=== PATIENT | male | born 1950 | race Caucasian/White ===

== ENCOUNTER 2018-04-26 16:23 | Inpatient (IN) | payer MEDICARE, BC ==
[~2018-04-26] VITALS: Ht 182.9 cm; Wt 91.6 kg
[2018-04-26 17:00] VITALS: BP 130/79
[2018-04-26] MEDS ORDERED: LORAZEPAM 2MG/ML CPJ IV PRN (19:30)
[2018-04-26 20:00] VITALS: BP 112/67
[2018-04-26] MEDS ORDERED: NON FORMULARY PATIENT HOME MED EA XX SCH ×2 (20:00)
[2018-04-26] MEDS ORDERED: GUAIFENESIN/CODEINE 100-10MG/5ML UDC PO PRN (20:30)
[2018-04-26 20:55] LABS: BASOPHILS % 0.6 % (0.0-2.0); CHLORIDE 99 mEq/L (98-107); EOSINOPHILS % 1.7 % (0.0-5.0); HEMATOCRIT. 30.6 % (42.0-52.0); HEMOGLOBIN. 10.2 g/dL (14.0-18.0); INR 1.3; LYMPHOCYTES % 8.1 % (20.0-50.0); MEAN CORPUSCULAR HEMOGLOBIN 28.2 pg (28.0-32.0); MEAN CORPUSCULAR VOLUME 84.8 fL (80.0-94.0); MEAN PLATELET VOLUME 6.3 fl (7.4-10.4); MONOCYTES % 12.7 % (2.0-8.0); NEUTROPHILS % 76.9 % (40.0-76.0); PLATELET 697 x1000/uL (130-400); PROTHROMBIN TIME 13.4 sec (9.4-11.6); RED BLOOD CELL COUNT 3.61 mill/uL (4.7-6.1); RED CELL DISTRIBUTION WIDTH 16.6 % (11.6-14.6)
[2018-04-26] MEDS ORDERED: PROMETHAZINE HCL 25MG TABLET PO PRN (21:00)
[2018-04-26] MEDS: ATORVASTATIN CALCIUM 40MG TABLET PO SCH (21:09)
[2018-04-26] MEDS: GABAPENTIN 300MG CAPSULE PO SCH (21:09)
[2018-04-26] MEDS: METRONIDAZOLE 500 MG PREMIX 100 ML IV SCH (22:09)
[2018-04-26] MEDS: ZOLPIDEM TARTRATE 5MG TABLET PO PRN (22:30)
[2018-04-26] MEDS: CEFEPIME 1,000 MG in DEXTROSE 5% WATER 50 ML IV SCH (23:16)
[2018-04-27] MEDS ORDERED: VANCOMYCIN 1,250 MG in DEXT 5% WATER 250 ML IV SCH (05:00)
[2018-04-27] MEDS: METRONIDAZOLE 500 MG PREMIX 100 ML IV SCH ×3 (05:43→23:13)
[2018-04-27 08:00] VITALS: BP 127/74
[2018-04-27] MEDS ORDERED: PANTOPRAZOLE SODIUM 40 MG/VIAL IV SCH (09:00)
[2018-04-27] MEDS: METOPROLOL TARTRATE 50MG TABLET PO SCH (09:00)
[2018-04-27] MEDS ORDERED: BISACODYL 10MG SUPP PR PRN (09:15)
[2018-04-27] MEDS: ENOXAPARIN 40MG/0.4ML SYR SUBCUT SCH (09:38)
[2018-04-27] MEDS: CHLORDIAZEPOXIDE 25MG CAPSULE PO SCH (09:46)
[2018-04-27] MEDS: FINASTERIDE 5MG TABLET PO SCH (09:46)
[2018-04-27] MEDS: AMLODIPINE 5MG TABLET PO SCH (09:46)
[2018-04-27] MEDS: LOSARTAN POTASSIUM 50 MG TABLET PO SCH (09:47)
[2018-04-27] MEDS: TAMSULOSIN HCL 0.4MG SR CAPSULE PO SCH (09:48)
[2018-04-27] MEDS: CITALOPRAM HYDROBROMIDE 20MG TABLET PO SCH (09:51)
[2018-04-27] MEDS: FLUTICASONE PROPIONATE 50MCG/SPRAY BOTTLE BOTHNSTRLS SCH (09:53)
[2018-04-27] MEDS: [UNRECOGNIZED DRUG - REMARK] IV SCH ×3 (09:53)
[2018-04-27] MEDS ORDERED: MINERAL OIL ENEMA 133ML PR SCH (10:00)
[2018-04-27] MEDS: LACTULOSE 20G/30ML UDC PO SCH ×3 (10:25→17:00)
[2018-04-27] MEDS: PANTOPRAZOLE 40MG DR TABLET PO SCH (10:25)
[2018-04-27] MEDS: BISACODYL 5MG TABLET PO SCH ×2 (10:25→17:00)
[2018-04-27] MEDS: DOCUSATE SODIUM 100MG CAPSULE PO SCH ×2 (10:33→17:00)
[2018-04-27 11:26] LABS: INR 1.3; PROTHROMBIN TIME 13.3 sec (9.4-11.6)
[2018-04-27 11:31] LABS: HEMOGLOBIN 10.7 g/dL (14.0-18.0); MEAN CORPUSCULAR HEMOGLOBIN 28.2 pg (28.0-32.0); MEAN CORPUSCULAR VOLUME 84.3 fL (80.0-94.0); PLATELET 794 x1000/uL (130-400); RED CELL DISTRIBUTION WIDTH 16.4 % (11.6-14.6)
[2018-04-27 11:58] LABS: CHLORIDE 98 mEq/L (98-107)
[2018-04-27 12:07] LABS: PHOSPHORUS 2.2 mg/dL (2.5-4.9)
[2018-04-27 12:10] LABS: PREALBUMIN 10.8 mg/dL (20.0-40.0)
[2018-04-27 12:22] LABS: AMMONIA 43 uMol/L (<32)
[2018-04-27] MEDS: CEFEPIME 1,000 MG in DEXTROSE 5% WATER 50 ML IV SCH ×2 (14:46→19:05)
[2018-04-27 20:00] VITALS: BP 111/69
[2018-04-27] MEDS: VANCOMYCIN 1,250 MG in DEXT 5% WATER 250 ML IV SCH (20:50)
[2018-04-27] MEDS: ATORVASTATIN CALCIUM 40MG TABLET PO SCH (20:51)
[2018-04-27] MEDS: GABAPENTIN 300MG CAPSULE PO SCH (20:51)
[2018-04-27] MEDS: IPRATROPIUM/ALBUTEROL 0.5-3(2.5)MG/3ML NEB HHN SCH (21:00)
[2018-04-28] MEDS: CEFEPIME 1,000 MG in DEXTROSE 5% WATER 50 ML IV SCH ×3 (01:58→23:21)
[2018-04-28] MEDS: METRONIDAZOLE 500 MG PREMIX 100 ML IV SCH ×3 (05:44→21:38)
[2018-04-28] MEDS: PANTOPRAZOLE 40MG DR TABLET PO SCH (07:00)
[2018-04-28] MEDS: VANCOMYCIN 1,250 MG in DEXT 5% WATER 250 ML IV SCH ×2 (07:00→18:41)
[2018-04-28] MEDS: IPRATROPIUM/ALBUTEROL 0.5-3(2.5)MG/3ML NEB HHN SCH ×4 (07:20→21:45)
[2018-04-28 08:00] VITALS: BP 113/67
[2018-04-28] MEDS: BISACODYL 5MG TABLET PO SCH ×2 (09:00→17:00)
[2018-04-28] MEDS: METOPROLOL TARTRATE 50MG TABLET PO SCH (09:00)
[2018-04-28] MEDS: LOSARTAN POTASSIUM 50 MG TABLET PO SCH (09:00)
[2018-04-28] MEDS: DOCUSATE SODIUM 100MG CAPSULE PO SCH ×2 (09:00→17:00)
[2018-04-28] MEDS: AMLODIPINE 5MG TABLET PO SCH (09:00)
[2018-04-28] MEDS: FLUTICASONE PROPIONATE 50MCG/SPRAY BOTTLE BOTHNSTRLS SCH (09:45)
[2018-04-28] MEDS: HYDROCODONE/ACETAMINOPHEN 10/325MG TABLET PO PRN (09:46)
[2018-04-28] MEDS: ENOXAPARIN 40MG/0.4ML SYR SUBCUT SCH (09:49)
[2018-04-28] MEDS: TAMSULOSIN HCL 0.4MG SR CAPSULE PO SCH (09:50)
[2018-04-28] MEDS: FINASTERIDE 5MG TABLET PO SCH (09:51)
[2018-04-28] MEDS: CITALOPRAM HYDROBROMIDE 20MG TABLET PO SCH (09:51)
[2018-04-28] MEDS: CHLORDIAZEPOXIDE 25MG CAPSULE PO SCH (09:51)
[2018-04-28] MEDS: [UNRECOGNIZED DRUG - REMARK] IV SCH ×3 (11:33)
[2018-04-28] MEDS: LIDOCAINE 5% PATCH TOP SCH (11:34)
[2018-04-28] MEDS: MAGNESIUM OXIDE 400MG TABLET PO SCH ×2 (11:39→23:28)
[2018-04-28] MEDS: LACTULOSE 20G/30ML UDC PO SCH ×2 (13:24→21:46)
[2018-04-28] MEDS: POTASSIUM-SODIUM PHOSPHATE POWDER PACKET PO SCH (18:41)
[2018-04-28 20:00] VITALS: BP 129/84
[2018-04-28] MEDS: GABAPENTIN 300MG CAPSULE PO SCH (21:36)
[2018-04-28] MEDS: ZOLPIDEM TARTRATE 5MG TABLET PO PRN (21:36)
[2018-04-28] MEDS: ATORVASTATIN CALCIUM 40MG TABLET PO SCH (21:36)
[2018-04-29] MEDS: LACTULOSE 20G/30ML UDC PO SCH ×3 (06:10→14:14)
[2018-04-29] MEDS: VANCOMYCIN 1,250 MG in DEXT 5% WATER 250 ML IV SCH ×2 (06:10→17:33)
[2018-04-29] MEDS: IPRATROPIUM/ALBUTEROL 0.5-3(2.5)MG/3ML NEB HHN SCH ×2 (07:10→21:29)
[2018-04-29 08:00] VITALS: BP 117/81
[2018-04-29] MEDS: FLUTICASONE PROPIONATE 50MCG/SPRAY BOTTLE BOTHNSTRLS SCH (08:34)
[2018-04-29] MEDS: METRONIDAZOLE 500 MG PREMIX 100 ML IV SCH ×3 (08:35→21:22)
[2018-04-29] MEDS: BISACODYL 5MG TABLET PO SCH ×2 (08:35→17:00)
[2018-04-29] MEDS: DOCUSATE SODIUM 100MG CAPSULE PO SCH ×2 (08:36→17:00)
[2018-04-29] MEDS: TAMSULOSIN HCL 0.4MG SR CAPSULE PO SCH (08:36)
[2018-04-29] MEDS: FINASTERIDE 5MG TABLET PO SCH (08:36)
[2018-04-29] MEDS: FAMOTIDINE 20MG TABLET PO SCH ×2 (08:37→21:20)
[2018-04-29] MEDS: CITALOPRAM HYDROBROMIDE 20MG TABLET PO SCH (08:37)
[2018-04-29] MEDS: CHLORDIAZEPOXIDE 25MG CAPSULE PO SCH (08:38)
[2018-04-29] MEDS: ENOXAPARIN 40MG/0.4ML SYR SUBCUT SCH (08:39)
[2018-04-29] MEDS: POTASSIUM-SODIUM PHOSPHATE POWDER PACKET PO SCH ×2 (08:41→17:00)
[2018-04-29] MEDS: LIDOCAINE 5% PATCH TOP SCH (08:41)
[2018-04-29] MEDS: METOPROLOL TARTRATE 50MG TABLET PO SCH (08:59)
[2018-04-29] MEDS: LOSARTAN POTASSIUM 50 MG TABLET PO SCH (08:59)
[2018-04-29] MEDS: AMLODIPINE 5MG TABLET PO SCH (09:00)
[2018-04-29] MEDS: [UNRECOGNIZED DRUG - REMARK] IV SCH ×3 (10:52)
[2018-04-29] MEDS: CEFEPIME 1,000 MG in DEXTROSE 5% WATER 50 ML IV SCH ×2 (10:52→22:01)
[2018-04-29] MEDS: MAGNESIUM OXIDE 400MG TABLET PO SCH ×2 (11:34→21:21)
[2018-04-29 13:21] LABS: CHLORIDE 101 mEq/L (98-107)
[2018-04-29 13:24] LABS: BASOPHILS % 0.7 % (0.0-2.0); EOSINOPHILS % 1.6 % (0.0-5.0); HEMATOCRIT. 32.1 % (42.0-52.0); HEMOGLOBIN. 10.7 g/dL (14.0-18.0); LYMPHOCYTES % 8.1 % (20.0-50.0); MEAN CORPUSCULAR HEMOGLOBIN 28.3 pg (28.0-32.0); MEAN CORPUSCULAR VOLUME 85.2 fL (80.0-94.0); MONOCYTES % 10.5 % (2.0-8.0); NEUTROPHILS % 79.1 % (40.0-76.0); PLATELET 803 x1000/uL (130-400); RED BLOOD CELL COUNT 3.77 mill/uL (4.7-6.1); RED CELL DISTRIBUTION WIDTH 16.8 % (11.6-14.6)
[2018-04-29 13:28] LABS: TOTAL IRON BINDING CAPACITY 249 ug/dL (250-450)
[2018-04-29 13:32] LABS: AMMONIA 30 uMol/L (<32)
[2018-04-29 13:45] LABS: FOLIC ACID (FOLATE) SERUM 17.3 ng/mL (>5.38)
[2018-04-29 14:53] LABS: HEPATITIS B SURFACE ANTIGEN NEGATIVE
[2018-04-29 15:21] LABS: HEPATITIS B CORE AB IGM NEGATIVE
[2018-04-29 15:22] LABS: HEPATITIS A AB IGM NEGATIVE (NEGATIVE)
[2018-04-29 20:00] VITALS: BP 139/82
[2018-04-29] MEDS ORDERED: METOPROLOL TARTRATE 50MG TABLET PO SCH (20:15)
[2018-04-29] MEDS: ATORVASTATIN CALCIUM 40MG TABLET PO SCH (21:20)
[2018-04-29] MEDS: GABAPENTIN 300MG CAPSULE PO SCH (21:20)
[2018-04-29] MEDS: GUAIFENESIN 600MG ER TABLET PO SCH (21:20)
[2018-04-30] MEDS: METRONIDAZOLE 500 MG PREMIX 100 ML IV SCH ×3 (05:17→22:59)
[2018-04-30 05:50] LABS: AMMONIA 53 uMol/L (<32)
[2018-04-30 05:52] LABS: CHLORIDE 101 mEq/L (98-107)
[2018-04-30 06:07] LABS: VANCOMYCIN TROUGH 26.9 ug/mL (5.0-10.0)
[2018-04-30 08:00] VITALS: BP 136/77
[2018-04-30] MEDS: IPRATROPIUM/ALBUTEROL 0.5-3(2.5)MG/3ML NEB HHN SCH ×4 (09:00→21:12)
[2018-04-30] MEDS: [UNRECOGNIZED DRUG - REMARK] IV SCH ×6 (09:00→09:56)
[2018-04-30] MEDS ORDERED: LACTULOSE 20G/30ML UDC PO SCH (09:00)
[2018-04-30] MEDS: DOCUSATE SODIUM 100MG CAPSULE PO SCH ×2 (09:27→17:00)
[2018-04-30] MEDS: CHLORDIAZEPOXIDE 25MG CAPSULE PO SCH (09:27)
[2018-04-30] MEDS: BISACODYL 5MG TABLET PO SCH ×2 (09:27→17:00)
[2018-04-30] MEDS: AMLODIPINE 5MG TABLET PO SCH (09:28)
[2018-04-30] MEDS: CITALOPRAM HYDROBROMIDE 20MG TABLET PO SCH (09:28)
[2018-04-30] MEDS: TAMSULOSIN HCL 0.4MG SR CAPSULE PO SCH (09:28)
[2018-04-30] MEDS: FAMOTIDINE 20MG TABLET PO SCH ×2 (09:29→22:59)
[2018-04-30] MEDS: FINASTERIDE 5MG TABLET PO SCH (09:29)
[2018-04-30] MEDS: GUAIFENESIN 600MG ER TABLET PO SCH ×2 (09:29→22:58)
[2018-04-30] MEDS: POTASSIUM-SODIUM PHOSPHATE POWDER PACKET PO SCH ×2 (09:30→17:36)
[2018-04-30] MEDS: METOPROLOL TARTRATE 50MG TABLET PO SCH (09:30)
[2018-04-30] MEDS: LIDOCAINE 5% PATCH TOP SCH (09:31)
[2018-04-30] MEDS: LOSARTAN POTASSIUM 50 MG TABLET PO SCH (09:33)
[2018-04-30] MEDS: ENOXAPARIN 40MG/0.4ML SYR SUBCUT SCH (09:35)
[2018-04-30] MEDS: MAGNESIUM OXIDE 400MG TABLET PO SCH (10:42)
[2018-04-30] MEDS: CEFEPIME 1,000 MG in DEXTROSE 5% WATER 50 ML IV SCH (10:42)
[2018-04-30] MEDS ORDERED: ENOXAPARIN 60MG/0.6ML SYR SUBCUT SCH (12:30)
[2018-04-30] MEDS: VANCOMYCIN 1 G PREMIX 200 ML IV SCH (12:46)
[2018-04-30 20:00] VITALS: BP 115/75
[2018-04-30] MEDS: ATORVASTATIN CALCIUM 40MG TABLET PO SCH (22:58)
[2018-04-30] MEDS: GABAPENTIN 300MG CAPSULE PO SCH (22:59)
[2018-04-30] MEDS: ENOXAPARIN 100MG/ML SYR SUBCUT SCH (23:00)
[2018-05-01] MEDS: CEFEPIME 1,000 MG in DEXTROSE 5% WATER 50 ML IV SCH ×3 (00:30→23:42)
[2018-05-01] MEDS: MAGNESIUM OXIDE 400MG TABLET PO SCH ×2 (00:31→12:12)
[2018-05-01] MEDS: VANCOMYCIN 1 G PREMIX 200 ML IV SCH ×2 (01:17→14:07)
[2018-05-01] MEDS: METRONIDAZOLE 500 MG PREMIX 100 ML IV SCH ×3 (05:18→22:29)
[2018-05-01 07:31] LABS: BASOPHILS % 0.8 % (0.0-2.0); EOSINOPHILS % 3.1 % (0.0-5.0); HEMATOCRIT. 28.9 % (42.0-52.0); HEMOGLOBIN. 9.6 g/dL (14.0-18.0); LYMPHOCYTES % 10.3 % (20.0-50.0); MEAN CORPUSCULAR HEMOGLOBIN 28.2 pg (28.0-32.0); MEAN CORPUSCULAR VOLUME 84.5 fL (80.0-94.0); MONOCYTES % 11.9 % (2.0-8.0); NEUTROPHILS % 73.9 % (40.0-76.0); PLATELET 631 x1000/uL (130-400); RED BLOOD CELL COUNT 3.41 mill/uL (4.7-6.1); RED CELL DISTRIBUTION WIDTH 16.6 % (11.6-14.6)
[2018-05-01 07:50] LABS: CHLORIDE 102 mEq/L (98-107)
[2018-05-01 07:54] LABS: AMMONIA 21 uMol/L (<32)
[2018-05-01 08:00] VITALS: BP 114/79
[2018-05-01] MEDS: IPRATROPIUM/ALBUTEROL 0.5-3(2.5)MG/3ML NEB HHN SCH ×4 (08:45→20:04)
[2018-05-01] MEDS: LOSARTAN POTASSIUM 50 MG TABLET PO SCH (08:49)
[2018-05-01] MEDS: CHLORDIAZEPOXIDE 25MG CAPSULE PO SCH (08:49)
[2018-05-01] MEDS: FINASTERIDE 5MG TABLET PO SCH (08:50)
[2018-05-01] MEDS: AMLODIPINE 5MG TABLET PO SCH (08:50)
[2018-05-01] MEDS: FAMOTIDINE 20MG TABLET PO SCH ×2 (08:51→20:49)
[2018-05-01] MEDS: METOPROLOL TARTRATE 50MG TABLET PO SCH (08:52)
[2018-05-01] MEDS: TAMSULOSIN HCL 0.4MG SR CAPSULE PO SCH (08:53)
[2018-05-01] MEDS: CITALOPRAM HYDROBROMIDE 20MG TABLET PO SCH (08:53)
[2018-05-01] MEDS: HYDROCODONE/ACETAMINOPHEN 10/325MG TABLET PO PRN (08:55)
[2018-05-01] MEDS: LIDOCAINE 5% PATCH TOP SCH ×2 (09:00→09:02)
[2018-05-01] MEDS: BISACODYL 5MG TABLET PO SCH ×2 (09:00→16:49)
[2018-05-01] MEDS: DOCUSATE SODIUM 100MG CAPSULE PO SCH ×2 (09:00→16:49)
[2018-05-01] MEDS: ENOXAPARIN 100MG/ML SYR SUBCUT SCH ×2 (09:02→20:50)
[2018-05-01] MEDS: GUAIFENESIN 600MG ER TABLET PO SCH ×2 (09:12→20:50)
[2018-05-01] MEDS ORDERED: HYDROCODONE/ACETAMINOPHEN 10/325MG TABLET PO PRN ×2 (19:00→19:30)
[2018-05-01] MEDS ORDERED: LORAZEPAM 2MG/ML CPJ IV PRN (19:45)
[2018-05-01] MEDS: [UNRECOGNIZED DRUG - REMARK] IV SCH ×3 (19:47)
[2018-05-01 20:00] VITALS: BP 110/67
[2018-05-01] MEDS: ATORVASTATIN CALCIUM 40MG TABLET PO SCH (20:49)
[2018-05-01] MEDS: GABAPENTIN 300MG CAPSULE PO SCH (20:50)
[2018-05-01] MEDS: ZOLPIDEM TARTRATE 5MG TABLET PO PRN (23:42)
[2018-05-02] MEDS: VANCOMYCIN 1 G PREMIX 200 ML IV SCH ×2 (00:21→13:15)
[2018-05-02] MEDS: METRONIDAZOLE 500 MG PREMIX 100 ML IV SCH (05:32)
[2018-05-02 06:53] LABS: AMMONIA 28 uMol/L (<32)
[2018-05-02 07:01] LABS: BASOPHILS % 1.1 % (0.0-2.0); EOSINOPHILS % 3.6 % (0.0-5.0); HEMATOCRIT. 28.6 % (42.0-52.0); HEMOGLOBIN. 9.5 g/dL (14.0-18.0); LYMPHOCYTES % 10.8 % (20.0-50.0); MEAN CORPUSCULAR HEMOGLOBIN 28.2 pg (28.0-32.0); MEAN CORPUSCULAR VOLUME 84.6 fL (80.0-94.0); MEAN PLATELET VOLUME 7.1 fl (7.4-10.4); MONOCYTES % 10.8 % (2.0-8.0); NEUTROPHILS % 73.7 % (40.0-76.0); PLATELET 651 x1000/uL (130-400); RED BLOOD CELL COUNT 3.38 mill/uL (4.7-6.1); RED CELL DISTRIBUTION WIDTH 16.5 % (11.6-14.6)
[2018-05-02 07:08] LABS: CHLORIDE 101 mEq/L (98-107)
[2018-05-02] MEDS: IPRATROPIUM/ALBUTEROL 0.5-3(2.5)MG/3ML NEB HHN SCH ×4 (07:43→20:17)
[2018-05-02 08:00] VITALS: BP 137/87
[2018-05-02] MEDS: ENOXAPARIN 100MG/ML SYR SUBCUT SCH ×2 (08:54→21:56)
[2018-05-02] MEDS: CITALOPRAM HYDROBROMIDE 20MG TABLET PO SCH (08:56)
[2018-05-02] MEDS: LIDOCAINE 5% PATCH TOP SCH (08:56)
[2018-05-02] MEDS: DOCUSATE SODIUM 100MG CAPSULE PO SCH ×2 (08:57→17:00)
[2018-05-02] MEDS: FAMOTIDINE 20MG TABLET PO SCH ×2 (08:57→21:56)
[2018-05-02] MEDS: LOSARTAN POTASSIUM 50 MG TABLET PO SCH (08:57)
[2018-05-02] MEDS: AMLODIPINE 5MG TABLET PO SCH (08:58)
[2018-05-02] MEDS: METOPROLOL TARTRATE 50MG TABLET PO SCH (08:58)
[2018-05-02] MEDS: FINASTERIDE 5MG TABLET PO SCH (08:59)
[2018-05-02] MEDS: TAMSULOSIN HCL 0.4MG SR CAPSULE PO SCH (08:59)
[2018-05-02] MEDS: GUAIFENESIN 600MG ER TABLET PO SCH ×2 (08:59→21:56)
[2018-05-02] MEDS: BISACODYL 5MG TABLET PO SCH ×2 (09:00→17:00)
[2018-05-02] MEDS: LACTULOSE 20G/30ML UDC PO SCH (09:00)
[2018-05-02] MEDS: CHLORDIAZEPOXIDE 25MG CAPSULE PO SCH (09:00)
[2018-05-02] MEDS: HYDROCODONE/ACETAMINOPHEN 10/325MG TABLET PO PRN (09:20)
[2018-05-02] MEDS: [UNRECOGNIZED DRUG - REMARK] IV SCH ×3 (09:22)
[2018-05-02] MEDS: CEFEPIME 1,000 MG in DEXTROSE 5% WATER 50 ML IV SCH ×2 (11:52→22:39)
[2018-05-02] MEDS ORDERED: DIATR MEGLU/DIATRIZOATE SOLN 30ML PO NR (13:30)
[2018-05-02 16:02] LABS: INR 1.3; PROTHROMBIN TIME 13.4 sec (9.4-11.6)
[2018-05-02] MEDS ORDERED: WARFARIN SODIUM 5MG TABLET PO NR (18:00)
[2018-05-02 20:00] VITALS: BP 103/62
[2018-05-02] MEDS: ATORVASTATIN CALCIUM 40MG TABLET PO SCH (21:55)
[2018-05-02] MEDS: METRONIDAZOLE 500MG TABLET PO SCH (21:55)
[2018-05-02] MEDS: GABAPENTIN 300MG CAPSULE PO SCH (21:56)
[2018-05-02] MEDS: ZOLPIDEM TARTRATE 5MG TABLET PO PRN (22:39)
[2018-05-03] MEDS: HYDROCODONE/ACETAMINOPHEN 10/325MG TABLET PO PRN (06:17)
[2018-05-03 06:47] LABS: INR 1.3; PROTHROMBIN TIME 13.4 sec (9.4-11.6)
[2018-05-03 06:53] LABS: BASOPHILS % 1.1 % (0.0-2.0); EOSINOPHILS % 4.2 % (0.0-5.0); HEMATOCRIT. 27.1 % (42.0-52.0); HEMOGLOBIN. 9.2 g/dL (14.0-18.0); LYMPHOCYTES % 11.9 % (20.0-50.0); MEAN CORPUSCULAR HEMOGLOBIN 28.8 pg (28.0-32.0); MEAN PLATELET VOLUME 7.3 fl (7.4-10.4); MONOCYTES % 11.9 % (2.0-8.0); NEUTROPHILS % 70.9 % (40.0-76.0); PLATELET 562 x1000/uL (130-400); RED BLOOD CELL COUNT 3.19 mill/uL (4.7-6.1); RED CELL DISTRIBUTION WIDTH 16.7 % (11.6-14.6)
[2018-05-03] MEDS: IPRATROPIUM/ALBUTEROL 0.5-3(2.5)MG/3ML NEB HHN SCH ×4 (07:30→21:30)
[2018-05-03 07:40] LABS: CHLORIDE 102 mEq/L (98-107)
[2018-05-03 08:00] VITALS: BP 120/80
[2018-05-03] MEDS: AMLODIPINE 5MG TABLET PO SCH (09:00)
[2018-05-03] MEDS: LIDOCAINE 5% PATCH TOP SCH (09:00)
[2018-05-03] MEDS: LOSARTAN POTASSIUM 50 MG TABLET PO SCH (09:00)
[2018-05-03] MEDS: DOCUSATE SODIUM 100MG CAPSULE PO SCH ×2 (09:27→16:35)
[2018-05-03] MEDS: METOPROLOL TARTRATE 50MG TABLET PO SCH (09:27)
[2018-05-03] MEDS: CITALOPRAM HYDROBROMIDE 20MG TABLET PO SCH (09:27)
[2018-05-03] MEDS: METRONIDAZOLE 500MG TABLET PO SCH ×2 (09:28→20:00)
[2018-05-03] MEDS: FINASTERIDE 5MG TABLET PO SCH (09:28)
[2018-05-03] MEDS: GUAIFENESIN 600MG ER TABLET PO SCH ×2 (09:28→20:01)
[2018-05-03] MEDS: BISACODYL 5MG TABLET PO SCH ×2 (09:28→17:16)
[2018-05-03] MEDS: FAMOTIDINE 20MG TABLET PO SCH ×2 (09:28→20:01)
[2018-05-03] MEDS: TAMSULOSIN HCL 0.4MG SR CAPSULE PO SCH (09:29)
[2018-05-03] MEDS: ENOXAPARIN 100MG/ML SYR SUBCUT SCH ×2 (09:32→20:01)
[2018-05-03] MEDS: [UNRECOGNIZED DRUG - REMARK] IV SCH ×3 (09:32)
[2018-05-03] MEDS: CEFEPIME 1,000 MG in DEXTROSE 5% WATER 50 ML IV SCH ×2 (11:45→22:01)
[2018-05-03] MEDS ORDERED: MAGNESIUM SULFATE 2 GM in SODIUM CHLORIDE 0.9% 50 ML IV NR (12:00)
[2018-05-03] MEDS ORDERED: VANCOMYCIN 1 G PREMIX 200 ML IV SCH (13:00)
[2018-05-03 15:09] LABS: 25-HYDROXY VITAMIN D3 48 ng/mL (.)
[2018-05-03] MEDS ORDERED: WARFARIN SODIUM 3MG TABLET PO SCH (18:00)
[2018-05-03 20:00] VITALS: BP 103/52
[2018-05-03] MEDS: GABAPENTIN 300MG CAPSULE PO SCH (20:01)
[2018-05-03] MEDS: ATORVASTATIN CALCIUM 40MG TABLET PO SCH (20:01)
[2018-05-03] MEDS: ZOLPIDEM TARTRATE 5MG TABLET PO PRN (21:07)
[2018-05-04 06:50] LABS: HEMATOCRIT. 28.3 % (42.0-52.0); HEMOGLOBIN. 9.5 g/dL (14.0-18.0); LYMPHOCYTES % 9.6 % (20.0-50.0); MEAN CORPUSCULAR HEMOGLOBIN 28.4 pg (28.0-32.0); MEAN PLATELET VOLUME 7.4 fl (7.4-10.4); MONOCYTES % 10.8 % (2.0-8.0); NEUTROPHILS % 74.6 % (40.0-76.0); PLATELET 580 x1000/uL (130-400); RED BLOOD CELL COUNT 3.33 mill/uL (4.7-6.1); RED CELL DISTRIBUTION WIDTH 17.1 % (11.6-14.6)
[2018-05-04 06:53] LABS: INR 1.3
[2018-05-04 07:17] LABS: AMMONIA 37 uMol/L (<32)
[2018-05-04 07:47] LABS: CHLORIDE 102 mEq/L (98-107)
[2018-05-04 08:00] VITALS: BP 120/66
[2018-05-04] MEDS: BISACODYL 5MG TABLET PO SCH ×2 (09:00→17:00)
[2018-05-04] MEDS: IPRATROPIUM/ALBUTEROL 0.5-3(2.5)MG/3ML NEB HHN SCH ×4 (09:00→20:11)
[2018-05-04] MEDS: LACTULOSE 20G/30ML UDC PO SCH (09:00)
[2018-05-04] MEDS: LIDOCAINE 5% PATCH TOP SCH (09:00)
[2018-05-04] MEDS: ENOXAPARIN 100MG/ML SYR SUBCUT SCH ×2 (09:01→21:52)
[2018-05-04] MEDS: FAMOTIDINE 20MG TABLET PO SCH ×2 (09:02→21:50)
[2018-05-04] MEDS: METOPROLOL TARTRATE 50MG TABLET PO SCH (09:02)
[2018-05-04] MEDS: DOCUSATE SODIUM 100MG CAPSULE PO SCH ×2 (09:03→17:00)
[2018-05-04] MEDS: GUAIFENESIN 600MG ER TABLET PO SCH ×2 (09:03→21:50)
[2018-05-04] MEDS: LOSARTAN POTASSIUM 50 MG TABLET PO SCH (09:03)
[2018-05-04] MEDS: FINASTERIDE 5MG TABLET PO SCH (09:04)
[2018-05-04] MEDS: AMLODIPINE 5MG TABLET PO SCH (09:04)
[2018-05-04] MEDS: CITALOPRAM HYDROBROMIDE 20MG TABLET PO SCH (09:05)
[2018-05-04] MEDS: METRONIDAZOLE 500MG TABLET PO SCH ×2 (09:05→21:50)
[2018-05-04] MEDS: TAMSULOSIN HCL 0.4MG SR CAPSULE PO SCH (09:06)
[2018-05-04] MEDS: HYDROCODONE/ACETAMINOPHEN 10/325MG TABLET PO PRN (09:19)
[2018-05-04] MEDS: CEFEPIME 1,000 MG in DEXTROSE 5% WATER 50 ML IV SCH ×2 (11:45→23:28)
[2018-05-04] MEDS ORDERED: WARFARIN SODIUM 7.5MG TABLET PO NR (18:00)
[2018-05-04 20:00] VITALS: BP 120/64
[2018-05-04] MEDS ORDERED: VANCOMYCIN 1 G PREMIX 200 ML IV SCH (21:00)
[2018-05-04] MEDS: GABAPENTIN 300MG CAPSULE PO SCH (21:50)
[2018-05-04] MEDS: ATORVASTATIN CALCIUM 40MG TABLET PO SCH (21:50)
[2018-05-04] MEDS: ZOLPIDEM TARTRATE 5MG TABLET PO PRN (22:03)
[2018-05-05] MEDS: [UNRECOGNIZED DRUG - REMARK] IV SCH ×12 (01:11→22:25)
[2018-05-05 06:38] LABS: BASOPHILS % 0.8 % (0.0-2.0); EOSINOPHILS % 3.5 % (0.0-5.0); HEMATOCRIT. 28.2 % (42.0-52.0); HEMOGLOBIN. 9.6 g/dL (14.0-18.0); LYMPHOCYTES % 12.4 % (20.0-50.0); MEAN CORPUSCULAR HEMOGLOBIN 28.8 pg (28.0-32.0); MEAN CORPUSCULAR VOLUME 85.2 fL (80.0-94.0); MEAN PLATELET VOLUME 7.1 fl (7.4-10.4); MONOCYTES % 11.3 % (2.0-8.0); PLATELET 558 x1000/uL (130-400); RED BLOOD CELL COUNT 3.32 mill/uL (4.7-6.1); RED CELL DISTRIBUTION WIDTH 17.1 % (11.6-14.6)
[2018-05-05 06:47] LABS: INR 1.8
[2018-05-05 07:26] LABS: AMMONIA 30 uMol/L (<32)
[2018-05-05 07:30] LABS: CHLORIDE 102 mEq/L (98-107)
[2018-05-05 07:36] LABS: PHOSPHORUS 2.4 mg/dL (2.5-4.9)
[2018-05-05 08:00] VITALS: BP 108/75
[2018-05-05] MEDS: AMLODIPINE 5MG TABLET PO SCH (09:00)
[2018-05-05] MEDS: LOSARTAN POTASSIUM 50 MG TABLET PO SCH (09:00)
[2018-05-05] MEDS: BISACODYL 5MG TABLET PO SCH ×2 (09:00→17:00)
[2018-05-05] MEDS: DOCUSATE SODIUM 100MG CAPSULE PO SCH ×2 (09:00→17:00)
[2018-05-05] MEDS: LIDOCAINE 5% PATCH TOP SCH (09:00)
[2018-05-05] MEDS: FINASTERIDE 5MG TABLET PO SCH (09:26)
[2018-05-05] MEDS: TAMSULOSIN HCL 0.4MG SR CAPSULE PO SCH (09:26)
[2018-05-05] MEDS: FAMOTIDINE 20MG TABLET PO SCH ×2 (09:26→21:25)
[2018-05-05] MEDS: METOPROLOL TARTRATE 50MG TABLET PO SCH (09:27)
[2018-05-05] MEDS: CITALOPRAM HYDROBROMIDE 20MG TABLET PO SCH (09:27)
[2018-05-05] MEDS: METRONIDAZOLE 500MG TABLET PO SCH (09:27)
[2018-05-05] MEDS: GUAIFENESIN 600MG ER TABLET PO SCH ×2 (09:28→21:24)
[2018-05-05] MEDS: ENOXAPARIN 100MG/ML SYR SUBCUT SCH ×2 (09:30→21:28)
[2018-05-05] MEDS: MAGNESIUM OXIDE 400MG TABLET PO SCH ×2 (09:59→21:25)
[2018-05-05] MEDS: POTASSIUM-SODIUM PHOSPHATE POWDER PACKET PO SCH ×2 (09:59→17:40)
[2018-05-05] MEDS: HYDROCODONE/ACETAMINOPHEN 10/325MG TABLET PO PRN (10:00)
[2018-05-05] MEDS: IPRATROPIUM/ALBUTEROL 0.5-3(2.5)MG/3ML NEB HHN SCH ×2 (10:05→21:26)
[2018-05-05] MEDS ORDERED: VANCOMYCIN 1 G PREMIX 200 ML IV SCH (11:00)
[2018-05-05] MEDS: CEFEPIME 1,000 MG in DEXTROSE 5% WATER 50 ML IV SCH (11:52)
[2018-05-05] MEDS ORDERED: WARFARIN SODIUM 2.5MG TABLET PO NR (18:00)
[2018-05-05 20:00] VITALS: BP 146/82
[2018-05-05] MEDS: GABAPENTIN 300MG CAPSULE PO SCH (21:25)
[2018-05-05] MEDS: ATORVASTATIN CALCIUM 40MG TABLET PO SCH (21:25)
[2018-05-05] MEDS: ZOLPIDEM TARTRATE 5MG TABLET PO PRN (21:31)
[2018-05-06 07:35] LABS: PROTHROMBIN TIME 20.7 sec (9.4-11.6)
[2018-05-06 08:00] VITALS: BP 106/74
[2018-05-06] MEDS: IPRATROPIUM/ALBUTEROL 0.5-3(2.5)MG/3ML NEB HHN SCH ×4 (09:00→22:13)
[2018-05-06] MEDS: LIDOCAINE 5% PATCH TOP SCH ×2 (09:00→09:45)
[2018-05-06] MEDS: LACTULOSE 20G/30ML UDC PO SCH ×2 (09:00→09:44)
[2018-05-06] MEDS: BISACODYL 5MG TABLET PO SCH ×2 (09:00→17:00)
[2018-05-06] MEDS: MAGNESIUM OXIDE 400MG TABLET PO SCH ×2 (09:37→22:25)
[2018-05-06] MEDS: LOSARTAN POTASSIUM 50 MG TABLET PO SCH (09:41)
[2018-05-06] MEDS: TAMSULOSIN HCL 0.4MG SR CAPSULE PO SCH (09:41)
[2018-05-06] MEDS: METOPROLOL TARTRATE 50MG TABLET PO SCH (09:42)
[2018-05-06] MEDS: HYDROCODONE/ACETAMINOPHEN 10/325MG TABLET PO PRN (09:43)
[2018-05-06] MEDS: AMLODIPINE 5MG TABLET PO SCH (09:43)
[2018-05-06] MEDS: CITALOPRAM HYDROBROMIDE 20MG TABLET PO SCH (09:43)
[2018-05-06] MEDS: FINASTERIDE 5MG TABLET PO SCH (09:43)
[2018-05-06] MEDS: POTASSIUM-SODIUM PHOSPHATE POWDER PACKET PO SCH ×2 (09:44→17:58)
[2018-05-06] MEDS: DOCUSATE SODIUM 100MG CAPSULE PO SCH ×2 (09:46→17:00)
[2018-05-06] MEDS: ENOXAPARIN 100MG/ML SYR SUBCUT SCH (09:48)
[2018-05-06] MEDS: FAMOTIDINE 20MG TABLET PO SCH ×2 (09:48→22:25)
[2018-05-06] MEDS: GUAIFENESIN 600MG ER TABLET PO SCH ×2 (12:36→22:25)
[2018-05-06] MEDS ORDERED: WARFARIN SODIUM 3MG TABLET PO NR (18:00)
[2018-05-06 20:00] VITALS: BP 112/69
[2018-05-06] MEDS: ATORVASTATIN CALCIUM 40MG TABLET PO SCH (22:25)
[2018-05-06] MEDS: GABAPENTIN 300MG CAPSULE PO SCH (22:25)
[2018-05-06] MEDS: [UNRECOGNIZED DRUG - REMARK] IV SCH ×3 (22:42)
[2018-05-07] MEDS: IPRATROPIUM/ALBUTEROL 0.5-3(2.5)MG/3ML NEB HHN SCH ×4 (07:10→21:51)
[2018-05-07 08:00] VITALS: BP 126/59
[2018-05-07 08:27] LABS: INR 1.9; PROTHROMBIN TIME 19.4 sec (9.4-11.6)
[2018-05-07 08:55] LABS: BASOPHILS % 0.9 % (0.0-2.0); EOSINOPHILS % 3.9 % (0.0-5.0); HEMATOCRIT. 28.5 % (42.0-52.0); HEMOGLOBIN. 9.5 g/dL (14.0-18.0); LYMPHOCYTES % 11.6 % (20.0-50.0); MEAN CORPUSCULAR HEMOGLOBIN 28.3 pg (28.0-32.0); MEAN CORPUSCULAR VOLUME 84.6 fL (80.0-94.0); MEAN PLATELET VOLUME 7.3 fl (7.4-10.4); MONOCYTES % 11.1 % (2.0-8.0); NEUTROPHILS % 72.5 % (40.0-76.0); PLATELET 599 x1000/uL (130-400); RED BLOOD CELL COUNT 3.36 mill/uL (4.7-6.1); RED CELL DISTRIBUTION WIDTH 17.2 % (11.6-14.6)
[2018-05-07 08:57] LABS: CHLORIDE 101 mEq/L (98-107)
[2018-05-07] MEDS: LIDOCAINE 5% PATCH TOP SCH (09:00)
[2018-05-07] MEDS: GUAIFENESIN 600MG ER TABLET PO SCH ×2 (09:00→21:30)
[2018-05-07] MEDS ORDERED: HYDROCODONE/ACETAMINOPHEN 10/325MG TABLET PO PRN (09:00)
[2018-05-07] MEDS: DOCUSATE SODIUM 100MG CAPSULE PO SCH ×2 (09:00→17:00)
[2018-05-07] MEDS: BISACODYL 5MG TABLET PO SCH ×2 (09:00→17:00)
[2018-05-07] MEDS: MAGNESIUM OXIDE 400MG TABLET PO SCH (09:12)
[2018-05-07] MEDS: METOPROLOL TARTRATE 50MG TABLET PO SCH (09:12)
[2018-05-07] MEDS: FAMOTIDINE 20MG TABLET PO SCH ×2 (09:12→21:30)
[2018-05-07] MEDS: FINASTERIDE 5MG TABLET PO SCH (09:13)
[2018-05-07] MEDS: TAMSULOSIN HCL 0.4MG SR CAPSULE PO SCH (09:13)
[2018-05-07] MEDS: POTASSIUM-SODIUM PHOSPHATE POWDER PACKET PO SCH (09:13)
[2018-05-07] MEDS: CITALOPRAM HYDROBROMIDE 20MG TABLET PO SCH (09:13)
[2018-05-07 09:25] LABS: PHOSPHORUS 3.1 mg/dL (2.5-4.9)
[2018-05-07 10:50] VITALS: BP 94/64
[2018-05-07] MEDS: AMLODIPINE 5MG TABLET PO SCH (10:50)
[2018-05-07] MEDS: LOSARTAN POTASSIUM 50 MG TABLET PO SCH (10:50)
[2018-05-07] MEDS ORDERED: MAGNESIUM SULFATE 2 GM in DEXTROSE 5% WATER 50 ML IV SCH (12:00)
[2018-05-07] MEDS ORDERED: WARFARIN SODIUM 5MG TABLET PO NR (18:00)
[2018-05-07 20:00] VITALS: BP 137/76
[2018-05-07] MEDS ORDERED: ZOLPIDEM TARTRATE 5MG TABLET PO PRN (21:15)
[2018-05-07] MEDS: GABAPENTIN 300MG CAPSULE PO SCH (21:30)
[2018-05-07] MEDS: ATORVASTATIN CALCIUM 40MG TABLET PO SCH (21:30)
[2018-05-07] MEDS: [UNRECOGNIZED DRUG - REMARK] IV SCH ×3 (21:31)
[2018-05-08 07:18] LABS: A/G RATIO 0.9 (0.7-1.7); ALBUMIN 2.7 g/dL (2.9-4.4); ALPHA-1-GLOBULIN 0.3 g/dL (0.0-0.4); ALPHA-2-GLOBULIN 0.7 g/dL (0.4-1.0); ANGIOTENSION CONVERTING ENZYME 26 U/L (14-82); BETA GLOBULIN 0.9 g/dL (0.7-1.3); GAMMA GLOBULINS 0.9 g/dL (0.4-1.8); GLOBULIN TOTAL 2.9 g/dL (2.2-3.9); M-SPIKE Not Observed g/dL (Not Observed); TOTAL PROTEIN SERUM 5.6 g/dL (6.0-8.5)
[2018-05-08] MEDS: IPRATROPIUM/ALBUTEROL 0.5-3(2.5)MG/3ML NEB HHN SCH ×2 (07:25→11:46)
[2018-05-08 08:00] VITALS: BP 133/75
[2018-05-08 08:06] LABS: PROTHROMBIN TIME 21.2 sec (9.4-11.6)
[2018-05-08] MEDS: DOCUSATE SODIUM 100MG CAPSULE PO SCH (09:00)
[2018-05-08] MEDS: LACTULOSE 20G/30ML UDC PO SCH (09:00)
[2018-05-08] MEDS: LIDOCAINE 5% PATCH TOP SCH (09:00)
[2018-05-08] MEDS: BISACODYL 5MG TABLET PO SCH (09:00)
[2018-05-08] MEDS: CITALOPRAM HYDROBROMIDE 20MG TABLET PO SCH (09:55)
[2018-05-08] MEDS: FAMOTIDINE 20MG TABLET PO SCH (09:55)
[2018-05-08] MEDS: GUAIFENESIN 600MG ER TABLET PO SCH (09:55)
[2018-05-08] MEDS: TAMSULOSIN HCL 0.4MG SR CAPSULE PO SCH (09:55)
[2018-05-08] MEDS: AMLODIPINE 5MG TABLET PO SCH (09:56)
[2018-05-08] MEDS: LOSARTAN POTASSIUM 50 MG TABLET PO SCH (09:56)
[2018-05-08] MEDS: METOPROLOL TARTRATE 50MG TABLET PO SCH (09:56)
[2018-05-08] MEDS: FINASTERIDE 5MG TABLET PO SCH (10:24)
[2018-05-08 11:34] VITALS: BP 133/75
[2018-05-08] MEDS ORDERED: WARFARIN SODIUM 5MG TABLET PO NR (18:00)
== END 2018-05-08 13:02 | disposition home or self-care (01) | DRG 947 ==
PROVIDERS: ADMIT Physical Medicine & Rehabilitation Spinal Cord Injury Medicine; ATTEND Specialist
DX: R53.81 Other malaise (principal); I50.21 Acute systolic (congestive) heart failure; J96.00 Acute respiratory failure, unspecified whether with hypoxia or hypercapnia; A41.9 Sepsis, unspecified organism; G93.40 Encephalopathy, unspecified; J15.0 Pneumonia due to Klebsiella pneumoniae; E87.1 Hypo-osmolality and hyponatremia; I42.9 Cardiomyopathy, unspecified; E72.20 Disorder of urea cycle metabolism, unspecified; E46 Unspecified protein-calorie malnutrition; I48.92 Unspecified atrial flutter; J44.0 Chronic obstructive pulmonary disease with (acute) lower respiratory infection; F10.188 Alcohol abuse with other alcohol-induced disorder; F33.1 Major depressive disorder, recurrent, moderate; K80.10 Calculus of gallbladder with chronic cholecystitis without obstruction; Z92.3 Personal history of irradiation; Z85.46 Personal history of malignant neoplasm of prostate; M54.5 Low back pain; M48.061 Spinal stenosis, lumbar region without neurogenic claudication; R26.9 Unspecified abnormalities of gait and mobility; D47.3 Essential (hemorrhagic) thrombocythemia; I11.0 Hypertensive heart disease with heart failure; R91.8 Other nonspecific abnormal finding of lung field; D50.9 Iron deficiency anemia, unspecified; E83.39 Other disorders of phosphorus metabolism; E83.42 Hypomagnesemia; E83.52 Hypercalcemia; R74.0 Nonspecific elevation of levels of transaminase and lactic acid dehydrogenase [LDH]; G47.33 Obstructive sleep apnea (adult) (pediatric); N40.0 Benign prostatic hyperplasia without lower urinary tract symptoms; E78.5 Hyperlipidemia, unspecified; G89.4 Chronic pain syndrome; Y90.9 Presence of alcohol in blood, level not specified; R20.0 Anesthesia of skin; R59.9 Enlarged lymph nodes, unspecified; E78.00 Pure hypercholesterolemia, unspecified; R73.9 Hyperglycemia, unspecified; J32.9 Chronic sinusitis, unspecified; F09 Unspecified mental disorder due to known physiological condition; F41.9 Anxiety disorder, unspecified; I48.2 Chronic atrial fibrillation; R73.03 Prediabetes; K59.00 Constipation, unspecified; Z68.27 Body mass index [BMI] 27.0-27.9, adult; Z79.01 Long term (current) use of anticoagulants; Z82.49 Family history of ischemic heart disease and other diseases of the circulatory system; Z83.3 Family history of diabetes mellitus; Z86.73 Personal history of transient ischemic attack (TIA), and cerebral infarction without residual deficits; Z87.891 Personal history of nicotine dependence; Z87.01 Personal history of pneumonia (recurrent)
CPT/HCPCS: 36415; 70551; 71045; 71046; 76705; 78227; 80048; 80053; 80076; 80202; 82105; 82140; 82164; 82248; 82270; 82306; 82330; 82533; 82607; 82728; 82746; 83540; 83550; 83735; 83970; 84100; 84134; 84155; 84165; 84443; 84630; 85025; 85027; 85610; 86705; 86709; 86803; 87340; 92523; 93005; 93306; 93970; 94640; 97110; 97112; 97116; 97150; 97162; 97166; 97167; 97530; 97535; A9537; C1893; C9113; G0515; J0692; J1650; J3370; J3475; J3490; J7040; J7050; J7060; J7620